=== PATIENT | male | born 1955 | race Two or more races ===

== ENCOUNTER 2018-08-05 15:50 | Emergency (ER) | payer OTHER ==
[~2018-08-05] VITALS: Ht 177.8 cm; Wt 103.4 kg
[2018-08-05] MEDS ORDERED: LISINOPRIL2.5 MG PO (16:08)
[2018-08-05] MEDS ORDERED: LEVOTHYROXINE50 MCG PO (16:08)
[2018-08-05 17:35] LABS: ALANINE AMINOTRANSFERASE 18 IU/L (0-55); ALBUMIN 3.8 g/dL (3.5-5.0); ALKALINE PHOSPHATASE 55 IU/L (40-150); ANION GAP 11.5 mmol/L (8-16); BLOOD UREA NITROGEN 13 mg/dL (7-26); BUN/CREATININE RATIO 14 (6-25); CALCIUM 8.9 mg/dL (8.4-10.2); CARBON DIOXIDE 27 mmol/L (22-29); CHLORIDE 110 mmol/L (98-107); CREATININE, SERUM 0.91 mg/dL (0.72-1.25); EST GLOMERULAR FILTRATION RATE > 60 ML/MIN (60-); GLUCOSE 103 mg/dL (74-118); POTASSIUM 4.5 mmol/L (3.5-5.1); SODIUM 144 mmol/L (136-145)
--- NOTE | 2018-08-05 19:18 | NUR ---
DR. LUGO AND ARABELLA, ENP IN TO EVAL PT IN TREATMENT ROOM.
--- NOTE | 2018-08-05 19:40 | NUR ---
MEDICATED PT ORDERED FOR HTN. PT MOVED TO ROOM 3, REPORT GIVEN TO KAYLIE HERNÁNDEZ BID CLERK NURSE.
[2018-08-05] MEDS ORDERED: NIFEDIPINE 10 MG CAP PO ONE (20:00)
--- NOTE | 2018-08-05 20:34 | Diagnostic Imaging Report ---
History:Severe eye pain Comparison studies: None Technique: Axial images were obtained from the skull base to the vertex. Coronal and sagittal images reconstructed from the axial data. Dose modulation, iterative reconstruction, and/or weight based adjustment of the mA/kV was utilized to reduce the radiation dose to as low as reasonably achievable. Intravenous contrast: None Findings: Scalp/skull: No abnormalities. Extra-axial spaces: No masses. No fluid collections. Brain sulci: Mildly prominent. Ventricles: Mild compensatory dilatation. No hydrocephalus. Parenchyma: No abnormal densities. No masses, hemorrhage, acute or chronic cortical vascular insults. Sellar/suprasellar region: No abnormalities. Craniocervical junction: Patent foramen magnum. No Chiari one malformation. Incidental findings: Atherosclerotic calcifications in the carotid siphons . Focal mucosal inflammatory changes in the floor of the right frontal sinus extend to the frontonasal recess. Additional mucosal thickening in several ethmoid air cells and the sphenoid sinuses. Impression: 1. Mild generalized volume loss. 2. Otherwise, no intracranial abnormalities. 3. Inflammatory changes in the right frontal sinus may be related to patient's symptoms. Signed by: Dr. Robles Benson M.D. on 08/05/2018 8:31 PM
[2018-08-05 21:14] VITALS: BP 152/91
== END 2018-08-05 21:24 | disposition home or self-care (01) ==
LOC: ER 15:50
DX: R51 Headache (principal); J01.00 Acute maxillary sinusitis, unspecified; J01.10 Acute frontal sinusitis, unspecified
CPT/HCPCS: 36415; 70450; 80053; 93005; 99284

== ENCOUNTER 2020-03-07 06:30 | Observation (INO) | payer BC ==
[~2020-03-07] VITALS: Ht 177.8 cm; Wt 106.6 kg
[~2020-03-07 06:30] MED LIST: LEVOTHYROXINE50 MCG PO; LISINOPRIL2.5 MG PO
[2020-03-07] MEDS ORDERED: SODIUM CHLORIDE 0.9% 1000ML 1,000 ML IV ONE (06:45)
[2020-03-07] MEDS ORDERED: ASPIRIN 81 MG CHEW TAB PO ONE (06:45)
[2020-03-07] MEDS ORDERED: ADENOSINE 6MG/2ML 2 ML ONE (06:48)
[2020-03-07] MEDS ORDERED: SODIUM CHLORIDE 0.9% 1000ML 1,000 ML ONE (06:49)
[2020-03-07] MEDS ORDERED: ADENOSINE 6 MG/2 ML VIAL IV ONE (06:51)
--- OUTSIDE RECORDS SUMMARY | 2020-03-07 07:02 | XMS REPORT | Continuity of Care Document ---
Author Author [facility] Organization [facility] Address [address] [place] [address] Phone Unavailable Care Team Providers Care Special Education Assistant Name Role Phone Patel CATALAN MD PCP Charlie LUGO Attphys Unavailable Problems This patient has no known problems. Allergies, Adverse Reactions, Alerts This patient has no known allergies or adverse reactions. Medications Ordered Medication Name Filled Medication Name Start Date Stop Da te Current Medication? Ordering Clinician Indication Dosage Frequency Signature (SIG) Comments Components Source Levothyroxine Sodium 50 Mcg Tablet Levothyroxine Sodium 50 Mcg Tablet Yes 50 Daily [facility] Lisinopril 2.5 Mg Tablet Lisinopril 2.5 Mg Tablet Yes 5 Daily [facility] Procedures Procedure Date / Time Performed Performing Clinician Sour e Computed tomography of brain without radiopaque contrast 201 01-22-17 00:00:00 VEE LUGO [facility] Encounters Start Date/Time End Date/Time Encounter Type Admission Type Attendi [facility] Care Department Encounter ID Source 2018-08-05 15:50:00 2018-08-05 21:24:00 Departed Emergency Room 1 VEE LUGO [facility] [id number] [facility] Results Test Description Test Time Test Comments Results Result Comments Source CT BRAIN WO 2018-08-05 20:28:00 [facility] [address] [place], [place] [address] Patient Name: ARLIN WYATT MR #: [id number] : 1955 Age/Sex: 63/M Req #: [id number] Adm Physician: Ordered by: VEE LUGO MD Report #: [id number] Location: ER Room/Bed: Procedure: [id number] CT/CT BRAIN WO Exam Date: Exam Time: REPORT STATUS: Signed History:Severe eye pain Comparison studies: None Technique: Axial images were obtained from the skull base to the vertex. Coronal and sagittal images reconstructed from the axial data. Dose modulation, iterative reconstruction, and/or weight based adjustment of the mA/kV was utilized to reduce the radiation dose to as low as reasonably achievable. Intravenous contrast: None Findings: Scalp/skull: No abnormalities. Extra-axial spaces: No masses. No fluid collections. Brain sulci: Mildly prominent. Ventricles: Mild compensatory dilatation. No hydrocephalus. Parenchyma: No abnormal densities. No masses, hemorr jose, acute or chronic cortical vascular insults. Sellar/suprasellar region: No abnormalities. Craniocervical junction: Patent foramen magnum. No Chiari one malformation. Incidental findings: Atherosclerotic calcifications in the carotid siphons . Focal mucosal inflammatory changes in the floor of the right frontal sinus extend to the frontonasal recess. Additional mucosal thickening in several ethmoid air cells and the sphenoid sinuses. Impression: 1. Mild generalized volume loss. 2. Otherwise, no intracranial abnormalities. 3. Inflammatory changes in the rig ht frontal sinus may be related to patient's symptoms. Signed by: Dr. Robles Benson M.D. on 08/05/2018 8:31 PM Dictated By: ROBLES BRANDT MD, MD 30 Transcribed By: LILY on 08/05/182030 COPY TO: VEE LUGO MD Sodium Level 2018-08-05 17:40:00 Test Item Sodium Level (test code = 2951-2) 144 136-145 [facility] Gubzs3868-95-63 17:40:00* Test Item Value Reference Range Interpretation Comments Potassium Level (test code = 2823-3) 4.5 3.5-5.1 [facility] Zopks9031-19-22 17:40:00* Test Item Value Reference Range Interpretation Comments Chloride Level (test code = 2075-0) 110 98-107 H [facility]entonCarbon Dioxide [id number] 17:40:00* Test Item Value Reference Range Interpretation Comments Carbon Dioxide Level (test code = 2028-9) 27 22-29 [facility]Anion [id number] 17:40:00* Test Item Value Reference Range Interpretation Comments Anion Gap (test code = 01790-9) 11.5 8-16 [facility] Urea Atsvzdys2204-24-77 17:40:00* Test Item Value Reference Range Interpretation Comments Blood Urea Nitrogen (test code = 3094-0) 13 7-26 [facility]inine2019-03-17 17:40:00* Test Item Value Reference Range Interpretation Comments Creatinine (test code = 2160-0) 0.91 0.72-1.25 [facility]UN/Creatinine Whdaq6139-07-82 17:40:00* Test Item Value Reference Range Interpretation Comments BUN/Creatinine Ratio (test code = 3097-3) 14 6- [facility] Glomerular Filtration Rate 2018-08-05 17:40:00* Test Item Value Reference Range Interpretation Comments Estimat Glomerular Filtration Rate (test code = 168297595) > 60 >60 Ranges were taken from the National Kidney Disease Education Program and the [facility] literature.Reference ranges:60 or greater: Lavdku11-75 ( for 3 consecutive months): Chronic kidney disease 15 or less: Kidney failureTexas Health DentonGlucose Olpqw8674-66-54 17:40:00* Test Item Value Reference Range Interpretation Comments Glucose Level (test code = PPX9903) 103 74-118 [facility]cium Tgmvt3996-36-06 17:40:00* Test Item Value Reference Range Interpretation Comments Calcium Level (test code = 91981-5) 8.9 8.4-10.2 [facility] Onsiwdjfd7185-33-14 17:40:00* Test Item Value Reference Range Interpretation Comments Total Bilirubin (test code = 1975-2) 0.4 0.2-1.2 [facility]enton[facility]artate Amino Transf (AST/SGOT) 2018-08-05 17:40:00* Test Item Value Reference Range Interpretation Comments Aspartate Amino Transf (AST/SGOT) (test code = Aspartate Amino Transf (AST/SGOT)) 19 5-34 [facility]anine Aminotransferase (ALT/SGPT) 2018-08-05 17:40:00* Test Item Value Reference Range Interpretation Comments Alanine Aminotransferase (ALT/SGPT) (test code = 1742-6) 18 0-55 [facility] Ejyovvy1835-24-44 17:40:00* Test Item Value Reference Range Interpretation Comments Total Protein (test code = 2885-2) 7.6 6.5-8.1 [facility]in2019-03-17 17:40:00* Test Item Value Reference Range Interpretation Comments Albumin (test code = 1751-7) 3.8 3.5-5.0 [facility]entonGlobulin2019-03-17 17:40:00* Test Item Value Reference Range Interpretation Comments Globulin (test code = 49379-2) 3.8 2.3-3.5 H [facility]entonAlbumin/Globulin Gptph9060-12-76 17:40:00 * Test Item Value Reference Range Interpretation Comments Albumin/Globulin Ratio (test code = 1759-0) 1.0 0.8-2.0 [facility]entonAlkaline Aqsobljttvu0371-20-83 17:40:00* Test Item Value Reference Range Interpretation Comments Alkaline Phosphatase (test code = 6768-6) 55 40-150 [facility]
[2020-03-07 07:04] LABS: BASOPHILS # (AUTO) 0.1 (0.0-0.1); BASOPHILS % 0.8 % (0.0-1.0); EOSINOPHILS # (AUTO) 0.6 (0.0-0.4); EOSINOPHILS % 4.5 % (0.0-6.0); HEMATOCRIT 46.4 % (38.2-49.6); HEMOGLOBIN 15.2 g/dL (14.0-18.0); MEAN CORPUSCULAR HEMOGLOBIN 30.6 pg (28-32); MEAN CORPUSCULAR HGB CONC 32.8 g/dL (31-35); MEAN CORPUSCULAR VOLUME 93.5 fL (81-99); MONOCYTES # (AUTO) 0.9 (0.2-0.8); MONOCYTES % 6.8 % (4.4-11.3); NEUTROPHILS # (AUTO) 7.6 (2.1-6.9); NEUTROPHILS % 57.4 % (38.7-80.0); PLATELET COUNT 290 x10e3/uL (140-360); RED BLOOD COUNT 4.96 x10e6/uL (4.3-5.7); RED CELL DISTRIBUTION WIDTH 12.9 % (11.7-14.4)
[2020-03-07 07:16] LABS: INR 0.93; PROTHROMBIN TIME 12.9 seconds (11.9-14.5)
[2020-03-07 07:17] LABS: PARTIAL THROMBOPLASTIN TIME 27.2 seconds (23.8-35.5)
[2020-03-07 07:22] LABS: ALANINE AMINOTRANSFERASE 21 IU/L (0-55); ALBUMIN/GLOBULIN RATIO 1.3 (0.8-2.0); ALKALINE PHOSPHATASE 46 IU/L (40-150); ANION GAP 15.3 mmol/L (8-16); BLOOD UREA NITROGEN 13 mg/dL (7-26); BUN/CREATININE RATIO 13 (6-25); CALCIUM 9.1 mg/dL (8.4-10.2); CARBON DIOXIDE 22 mmol/L (22-29); CHLORIDE 105 mmol/L (98-107); CREATINE KINASE 189 IU/L (30-200); CREATININE, SERUM 0.98 mg/dL (0.72-1.25); EST GLOMERULAR FILTRATION RATE > 60 ML/MIN (60-); GLUCOSE 132 mg/dL (74-118); POTASSIUM 4.3 mmol/L (3.5-5.1); SODIUM 138 mmol/L (136-145)
[2020-03-07] MEDS ORDERED: ONDANSETRON HCL INJ 2MG/ML 2ML 2 MG/ML VIAL IV PRN (07:45)
[2020-03-07] MEDS ORDERED: NITROGLYCERIN 0.4 MG SUBL SL PRN (07:45)
[2020-03-07] MEDS ORDERED: MORPHINE SULFATE 2 MG/ML SYR 1ML IV PRN (07:45)
[2020-03-07 07:49] LABS: FREE THYROXINE INDEX 1.9215 (1.4-3.8); THYROID STIMULATING HORMONE 7.341 uIU/mL (0.350-4.940)
--- NOTE | 2020-03-07 07:52 | Emergency Department Note ---
History of Present Illnes History of Present Illness Chief Complaint: General Medicine Complaints History of Present Illness This is a 64 year old Other male 64 Y/O MALE PT AAOX3 PRESENTS TO ED WITH SOB AND CHEST PRESSURE SINCE 0300 AM; EKG PERFORMED ON ARRIVAL, SVT NOTED, ER MD TO TRIAGE. As ECG was bring done, I had to run to 2nd floor for a Code Blue - I had nurses get pt ready on monitor with pacer pads, O2 NC, and draw up 12 mg Adenosine to give when I got back Historian: Patient Arrival Mode: Car Gym Attendant Required: No Onset (how long ago): hour(s) Location: chest Quality: heavy Radiation: Reports non-radiation Severity: moderate Onset quality: sudden Duration (how long): hour(s) Timing of current episode: constant Progression: unchanged Chronicity: new Context: Denies recent illness Relieving factors: none Exacerbating factors: none Associated symptoms: Reports chest pain, Reports shortness of breath, Reports other (palpitations) Treatments prior to arrival: none Past Medical/Family History Physician Review I have reviewed the patient's past medical and family history. Any updates have been documented here. Past Medical History Recent Fever: No Clinical Suspicion of Infectio: No New/Unexplained Change in Ment: No Past Medical History: Hypertension, Hypothyroidism, Hyperlipedemia Past Surgical History: Cholecysctectomy Social History Smoking Cessation: Current some day smoker Counseling Performed: Yes Alcohol Use: Daily Any Illegal Drug Use: No TB Exposure/Symptoms: No Physically hurt or threatened: No Family History Family history of heart diseas: No Other Any Pre-Existing Lines (PICC,: No Review of Systems Review of Systems Constitutional: Reports no symptoms EENTM: Reports no symptoms Cardiovascular: Reports as per HPI, Reports chest pain, Reports palpitations Respiratory: Reports as per HPI, Reports dyspnea, Reports dyspnea on exertion Gastrointestinal: Reports no symptoms Genitourinary: Reports no symptoms Musculoskeletal: Reports no symptoms Integumentary: Reports no symptoms Neurological: Reports no symptoms Psychological: Reports no symptoms Endocrine: Reports no symptoms Hematological/Lymphatic: Reports no symptoms Physical Exam Related Data Allergies: Coded Allergies: No Known Allergies (Verified , 06/12/07) Triage Vital Signs Vital Signs Date Time Temp Pulse Resp B/P (MAP) Pulse Ox O2 Delivery O2 Flow Rate FiO2 03/07/20 06:30 98.0 187 16 133/102 100 Room Air 03/07/20 07:12 2.0 Vital signs reviewed: Yes Physical Exam CONSTITUTIONAL Constitutional: Present well-developed, Present well-nourished HENT HENT: Present normocephalic, Present atraumatic, Present oropharynx clear/moist, Present nose normal HENT L/R: Present left ext ear normal, Present right ext ear normal EYES Eyes: Reports PERRL, Reports conjunctivae normal NECK Neck: Present ROM normal PULMONARY Pulmonary: Present effort normal, Present breath sounds normal CARDIOVASCULAR Cardiovascular: Present regular rhythm, Present heart sounds normal, Present tachycardia, Present LLE edema (1+), Present RLE edema (1+) GASTROINTESTINAL Abdominal: Present soft, Present nontender, Present bowel sounds normal GENITOURINARY Genitourinary: Present exam deferred SKIN Skin: Present warm, Present dry MUSCULOSKELETAL Musculoskeletal: Present ROM normal NEUROLOGICAL Neurological: Present alert, Present oriented x 3, Present no gross motor or sensory deficits PSYCHOLOGICAL Psychological: Present mood/affect normal, Present judgement normal Results Laboratory Result Diagram: 03/07/20 0644 Laboratory Laboratory Tests Test 03/07/20 06:44 White Blood Count 13.30 x10e3/uL (4.8-10.8) Red Blood Count 4.96 x10e6/uL (4.3-5.7) Hemoglobin 15.2 g/dL (14.0-18.0) Hematocrit 46.4 % (38.2-49.6) Mean Corpuscular Volume 93.5 fL (81-99) Mean Corpuscular Hemoglobin 30.6 pg (28-32) Mean Corpuscular Hemoglobin Concent 32.8 g/dL (31-35) Red Cell Distribution Width 12.9 % (11.7-14.4) Platelet Count 290 x10e3/uL (140-360) Neutrophils (%) (Auto) 57.4 % (38.7-80.0) Lymphocytes (%) (Auto) 30.0 % (18.0-39.1) Monocytes (%) (Auto) 6.8 % (4.4-11.3) Eosinophils (%) (Auto) 4.5 % (0.0-6.0) Basophils (%) (Auto) 0.8 % (0.0-1.0) Neutrophils # (Auto) 7.6 (2.1-6.9) Lymphocytes # (Auto) 4.0 (1.0-3.2) Monocytes # (Auto) 0.9 (0.2-0.8) Eosinophils # (Auto) 0.6 (0.0-0.4) Basophils # (Auto) 0.1 (0.0-0.1) Absolute Immature Granulocyte (auto 0.07 x10e3/uL (0-0.1) Prothrombin Time 12.9 seconds (11.9-14.5) Prothromb Time International Ratio 0.93 Activated Partial Thromboplast Time 27.2 seconds (23.8-35.5) D-Dimer Quantitative (PE/DVT) 0.26 ug/mLFEU (0.00-0.45) Sodium Level 138 mmol/L (136-145) Potassium Level 4.3 mmol/L (3.5-5.1) Chloride Level 105 mmol/L (98-107) Carbon Dioxide Level 22 mmol/L (22-29) Anion Gap 15.3 mmol/L (8-16) Blood Urea Nitrogen 13 mg/dL (7-26) Creatinine 0.98 mg/dL (0.72-1.25) Estimat Glomerular Filtration Rate > 60 ML/MIN (60-) BUN/Creatinine Ratio 13 (6-25) Glucose Level 132 mg/dL (74-118) Calcium Level 9.1 mg/dL (8.4-10.2) Magnesium Level 1.7 MG/DL (1.3-2.1) Total Bilirubin 0.2 mg/dL (0.2-1.2) Aspartate Amino Transf (AST/SGOT) 20 IU/L (5-34) Alanine Aminotransferase (ALT/SGPT) 21 IU/L (0-55) Alkaline Phosphatase 46 IU/L (40-150) Creatine Kinase 189 IU/L (30-200) Creatine Kinase MB 3.30 ng/mL (0-5.0) Troponin I 0.004 ng/mL (0-0.300) B-Type Natriuretic Peptide 55.0 pg/mL (0-100) Total Protein 7.1 g/dL (6.5-8.1) Albumin 4.0 g/dL (3.5-5.0) Globulin 3.1 g/dL (2.3-3.5) Albumin/Globulin Ratio 1.3 (0.8-2.0) Laboratory Tests Test 03/07/20 06:44 White Blood Count 13.30 x10e3/uL (4.8-10.8) Red Blood Count 4.96 x10e6/uL (4.3-5.7) Hemoglobin 15.2 g/dL (14.0-18.0) Hematocrit 46.4 % (38.2-49.6) Mean Corpuscular Volume 93.5 fL (81-99) Mean Corpuscular Hemoglobin 30.6 pg (28-32) Mean Corpuscular Hemoglobin Concent 32.8 g/dL (31-35) Red Cell Distribution Width 12.9 % (11.7-14.4) Platelet Count 290 x10e3/uL (140-360) Neutrophils (%) (Auto) 57.4 % (38.7-80.0) Lymphocytes (%) (Auto) 30.0 % (18.0-39.1) Monocytes (%) (Auto) 6.8 % (4.4-11.3) Eosinophils (%) (Auto) 4.5 % (0.0-6.0) Basophils (%) (Auto) 0.8 % (0.0-1.0) Neutrophils # (Auto) 7.6 (2.1-6.9) Lymphocytes # (Auto) 4.0 (1.0-3.2) Monocytes # (Auto) 0.9 (0.2-0.8) Eosinophils # (Auto) 0.6 (0.0-0.4) Basophils # (Auto) 0.1 (0.0-0.1) Absolute Immature Granulocyte (auto 0.07 x10e3/uL (0-0.1) Prothrombin Time 12.9 seconds (11.9-14.5) Prothromb Time International Ratio 0.93 Activated Partial Thromboplast Time 27.2 seconds (23.8-35.5) D-Dimer Quantitative (PE/DVT) 0.26 ug/mLFEU (0.00-0.45) Sodium Level 138 mmol/L (136-145) Potassium Level 4.3 mmol/L (3.5-5.1) Chloride Level 105 mmol/L (98-107) Carbon Dioxide Level 22 mmol/L (22-29) Anion Gap 15.3 mmol/L (8-16) Blood Urea Nitrogen 13 mg/dL (7-26) Creatinine 0.98 mg/dL (0.72-1.25) Estimat Glomerular Filtration Rate > 60 ML/MIN (60-) BUN/Creatinine Ratio 13 (6-25) Glucose Level 132 mg/dL (74-118) Calcium Level 9.1 mg/dL (8.4-10.2) Magnesium Level 1.7 MG/DL (1.3-2.1) Total Bilirubin 0.2 mg/dL (0.2-1.2) Aspartate Amino Transf (AST/SGOT) 20 IU/L (5-34) Alanine Aminotransferase (ALT/SGPT) 21 IU/L (0-55) Alkaline Phosphatase 46 IU/L (40-150) Creatine Kinase 189 IU/L (30-200) Creatine Kinase MB 3.30 ng/mL (0-5.0) Troponin I 0.004 ng/mL (0-0.300) B-Type Natriuretic Peptide 55.0 pg/mL (0-100) Total Protein 7.1 g/dL (6.5-8.1) Albumin 4.0 g/dL (3.5-5.0) Globulin 3.1 g/dL (2.3-3.5) Albumin/Globulin Ratio 1.3 (0.8-2.0) Laboratory Tests Test 03/07/20 06:44 White Blood Count 13.30 x10e3/uL (4.8-10.8) Red Blood Count 4.96 x10e6/uL (4.3-5.7) Hemoglobin 15.2 g/dL (14.0-18.0) Hematocrit 46.4 % (38.2-49.6) Mean Corpuscular Volume 93.5 fL (81-99) Mean Corpuscular Hemoglobin 30.6 pg (28-32) Mean Corpuscular Hemoglobin Concent 32.8 g/dL (31-35) Red Cell Distribution Width 12.9 % (11.7-14.4) Platelet Count 290 x10e3/uL (140-360) Neutrophils (%) (Auto) 57.4 % (38.7-80.0) Lymphocytes (%) (Auto) 30.0 % (18.0-39.1) Monocytes (%) (Auto) 6.8 % (4.4-11.3) Eosinophils (%) (Auto) 4.5 % (0.0-6.0) Basophils (%) (Auto) 0.8 % (0.0-1.0) Neutrophils # (Auto) 7.6 (2.1-6.9) Lymphocytes # (Auto) 4.0 (1.0-3.2) Monocytes # (Auto) 0.9 (0.2-0.8) Eosinophils # (Auto) 0.6 (0.0-0.4) Basophils # (Auto) 0.1 (0.0-0.1) Absolute Immature Granulocyte (auto 0.07 x10e3/uL (0-0.1) Prothrombin Time 12.9 seconds (11.9-14.5) Prothromb Time International Ratio 0.93 Activated Partial Thromboplast Time 27.2 seconds (23.8-35.5) Lab results reviewed: Yes Imaging Imaging results reviewed: Yes Procedures 12 Lead ECG Interpretation ECG Interpretation #1: ECG: ECG 1 Gym Attendant: Interpreted by ED physician Date: Mar 07, 2020 Time: 06:36 Rhythm: SVT Rate: tachycardia BPM: 186 QRS axis: normal ST segments normal: Yes T waves normal: Yes Clinical Impression: abnormal ECG ECG Interpretation #2: ECG: ECG 2 Gym Attendant: Interpreted by ED physician Date: Mar 07, 2020 Time: 06:51 Rhythm: sinus rhythm Rate: normal BPM: 94 QRS axis: normal ST segments normal: Yes T waves normal: Yes Clinical Impression: normal ECG Critical Care Time Total Critical Care Time (min): 30 Critical care time exclusive o: separately billable procedures Critcal care necessary due to: other (SVT 186) Critcal care time spent by me: discussion w primary provider, obtaining hx from patient/surrogate, order/perform tx or interventions, order/review laboratory studies, re-evaluation of patient condition Assessment & Plan Medical Decision Making MDM PT PRESENTS WITH CP/SOB/PALPITATIONS, TACHYCARDIC ON EXAM - ECG, CARDIACS, CBC, CHEM, D-DIMER, THYROID PANEL, BNP, CXR - PT NOTED TO BE IN SVT IN TRIAGE - WILL ATTEMPT TO CONVERT WITH ADENOSINE. R/O STEMI/NSTEMI, HYPERTHYROID, PULM EMBOLISM, CHF Reassessment Reassessment PT CONVERTED TO NSR WITH RATE OF 96 AFTER 1 DOSE OF ADENOSINE 12 MG IVP. D-DIMER NEGATIVE, LABS LOOK GOOD, ADMIT TO DR SANCHEZ OBS R/O ACS Assessment & Plan Final Impression: (1) SVT (supraventricular tachycardia) (2) Chest pain Depart Disposition: ADMITTED Last Vital Signs Date Time Temp Pulse Resp B/P (MAP) Pulse Ox O2 Delivery O2 Flow Rate FiO2 03/07/20 07:12 98.6 86 18 135/95 99 Nasal Cannula 2.0 Home Meds Reported Medications Lisinopril (LISINOPRIL) 2.5 Mg Tablet, 5 MG PO DAILY, #30 TAB 08/05/18 Levothyroxine Sodium (LEVOTHYROXINE SODIUM) 50 Mcg Tablet, 50 MCG PO DAILY, #30 TAB 08/05/18 Medications in the ED Adenosine 2 ml @ ud STK-MED ONCE .ROUTE ; Start 03/07/20 at 06:48; Stop 03/07/20 at 06:41; Status DC Aspirin 81 mg PRN ONCE PO ; Start 03/07/20 at 06:45; Stop 03/07/20 at 06:49; Status DC Sodium Chloride 1,000 ml @ ud STK-MED ONCE .ROUTE ; Start 03/07/20 at 06:49; Stop 03/07/20 at 06:42; Status DC Sodium Chloride 1,000 ml @ 0 mls/hr Q0M ONCE IV Last administered on 03/07/20at 06:50; Admin Dose 999 MLS/HR; Start 03/07/20 at 06:45; Stop 03/07/20 at 06:49; Status DC Adenosine 12 mg ONCE ONCE IV Last administered on 03/07/20at 06:51; Admin Dose 12 MG; Start 03/07/20 at 06:51; Stop 03/07/20 at 06:55; Status DC VEE LUGO MD Mar 07, 2020 07:52
--- OUTSIDE RECORDS SUMMARY | 2020-03-07 07:53 | XMS REPORT | Continuity of Care Document ---
Author Author [facility] Organization [facility] Address [address] [place] [address] Phone Unavailable Care Team Providers Care Loom Winder Tender Name Role Phone Patel CATALAN MD PCP [...] Sodium 50 Mcg Tablet Yes 50 Daily [facility] Lisinopril 2.5 Mg Tablet Lisinopril 2.5 Mg Tablet Yes 5 Daily [facility] Procedures Procedure Date / Time Performed Performing Clinician Sour e Computed tomography of brain without radiopaque contrast 201 01-22-17 00:00:00 VEE LUGO [facility] Encounters Start Date/Time End Date/Time Encounter Type Admission Type Attendi [facility] Care Department Encounter ID Source 2018-08-05 15:50:00 2018-08-05 21:24:00 Departed Emergency Room 1 VEE LUGO [facility] [id number] [facility] Results Test Description Test Time Test Comments Results Result Comments Source CT BRAIN WO 2018-08-05 20:28:00 [facility] [address] [place], [place] [address] Patient Name: ARLIN WYATT MR #: [id number] : 1955 Age/Sex: 63/M Req #: [id number] Adm Physician: Ordered by: VEE LUGO MD Report #: [id number] Location: ER Room/Bed: Procedure: [id number] CT/CT BRAIN WO Exam Date: Exam Time: [...] Level (test code = 2951-2) 144 136-145 [facility] Ktgrq5513-03-07 17:40:00* Test Item Value Reference Range Interpretation Comments Potassium Level (test code = 2823-3) 4.5 3.5-5.1 [facility] [id number] 17:40:00* Test Item Value Reference Range Interpretation Comments Chloride Level (test code = 2075-0) 110 98-107 H [facility]Car[facility] Dioxide [id number] 17:40:00* Test Item Value Reference Range Interpretation Comments Carbon Dioxide Level (test code = 2028-9) 27 22-29 [facility] [id number] 17:40:00* Test Item Value Reference Range Interpretation Comments Anion Gap (test code = 23312-0) 11.5 8-16 [facility] U[facility] Flhdpcap3310-65-96 17:40:00* Test Item Value Reference Range Interpretation Comments Blood Urea Nitrogen (test code = 3094-0) 13 7-26 [facility]2019-03-17 17:40:00* Test Item Value Reference Range Interpretation Comments Creatinine (test code = 2160-0) 0.91 0.72-1.25 [facility]Creatinine Megzy4603-55-60 17:40:00* Test Item Value Reference Range Interpretation Comments BUN/Creatinine Ratio (test code = 3097-3) 14 6- [facility] Glomerular Filtration Rate 2018-08-05 17:40:00* Test Item Value Reference Range Interpretation Comments Estimat Glomerular Filtration Rate (test code = 049946444) > 60 >60 Ranges were taken from the National Kidney Disease Education Program and the [facility] literature.Reference ranges:60 or greater: Uuezip75-59 ( for 3 consecutive months): Chronic kidney disease 15 or less: Kidney failureParkview Regional HospitalGlucose Dkvpo3403-32-99 17:40:00* Test Item Value Reference Range Interpretation Comments Glucose Level (test code = KFZ7564) 103 74-118 [facility]Cal[facility] Rpmdb1297-97-83 17:40:00* Test Item Value Reference Range Interpretation Comments Calcium Level (test code = 37652-5) 8.9 8.4-10.2 [facility]Total Butkspcjd1931-76-07 17:40:00* Test Item Value Reference Range Interpretation Comments Total Bilirubin (test code = 1975-2) 0.4 0.2-1.2 [facility] HospitalAspartate Amino Transf (AST/SGOT) 2018-08-05 17:40:00* Test Item Value Reference Range Interpretation Comments Aspartate Amino Transf (AST/SGOT) (test code = Aspartate Amino Transf (AST/SGOT)) 19 5-34 [facility] HospitalAl[facility] Aminotransferase (ALT/SGPT) 2018-08-05 17:40:00* Test Item Value Reference Range Interpretation Comments Alanine Aminotransferase (ALT/SGPT) (test code = 1742-6) 18 0-55 [facility] Aetxian7939-43-07 17:40:00* Test Item Value Reference Range Interpretation Comments Total Protein (test code = 2885-2) 7.6 6.5-8.1 [facility] HospitalAlbumin2019-03-17 17:40:00* Test Item Value Reference Range Interpretation Comments Albumin (test code = 1751-7) 3.8 3.5-5.0 [facility] HospitalGlobulin2019-03-17 17:40:00* Test Item Value Reference Range Interpretation Comments Globulin (test code = 83546-3) 3.8 2.3-3.5 H [facility] HospitalAlbumin/Globulin Thaki3947-01-89 17:40:00 * Test Item Value Reference Range Interpretation Comments Albumin/Globulin Ratio (test code = 1759-0) 1.0 0.8-2.0 [facility] HospitalAlkaline Jdnwcvufeov3792-53-66 17:40:00* Test Item Value Reference Range Interpretation Comments Alkaline Phosphatase (test code = 6768-6) 55 40-150 [facility]
[2020-03-07] MEDS: ASPIRIN 81 MG ENTERIC COATED PO SCH (08:42)
[2020-03-07] MEDS: METOPROLOL TARTRATE 25 MG TAB PO SCH ×2 (09:27→21:00)
[2020-03-07 09:33] VITALS: BP 138/98
[2020-03-07 10:00] VITALS: BP 138/98
[2020-03-07] MEDS: SODIUM CHLORIDE 0.9% 1000ML 1,000 ML IV SCH ×2 (10:08→22:00)
[2020-03-07 12:00] VITALS: BP 142/93
[2020-03-07 13:12] LABS: CREATINE KINASE MB 3.7 ng/mL (0-5.0)
--- NOTE | 2020-03-07 15:59 | Diagnostic Imaging Report ---
EXAMINATION: CHEST SINGLE (PORTABLE) INDICATION: CARDIAC WORKUP COMPARISON: None FINDINGS: TUBES and LINES: None. LUNGS: Lungs are well inflated. Central vascular congestion. Patchy left basilar opacity. No specific findings of pulmonary edema. PLEURA: Possible small left pleural effusion. No evidence of pneumothorax. HEART AND MEDIASTINUM: The cardiomediastinal silhouette is moderately enlarged. BONES AND SOFT TISSUES: No acute osseous lesion. Soft tissues are unremarkable. UPPER ABDOMEN: No free air under the diaphragm. IMPRESSION: Left basilar opacity may represent small left pleural effusion and atelectasis. Infection is possible in the appropriate clinical setting. Recommend follow-up chest radiograph to assess for resolution. Moderate enlargement of the cardiomediastinal silhouette. Signed by: Dr. Billie Loera MD on 03/07/2020 3:56 PM
[2020-03-07 16:05] VITALS: BP 131/87
[2020-03-07 18:52] LABS: CREATINE KINASE MB 3.1 ng/mL (0-5.0)
[2020-03-07 20:00] VITALS: BP 153/88
[2020-03-07] MEDS: FAMOTIDINE 20 MG/2 ML VIAL IV SCH (20:00)
--- NOTE | 2020-03-07 20:05 | NUR ---
RECEIVED PT SITTING ON THE CHAIR AOX3,DENIES PAIN .RESPIRATIONS ARE EVEN AND UNLABORED DR GLYNN HAS SEEN THE PT NS AT [address]ING ,NO ACUTE DISTRESS NOTED ,CALL LIGHT WITH IN REACH .CONTINUE TO MONITOR
[2020-03-07 23:45] VITALS: BP 153/88
[2020-03-08] VITALS: BP 162/97
[2020-03-08 01:45] LABS: CREATINE KINASE MB 2.6 ng/mL (0-5.0)
[2020-03-08 04:00] VITALS: BP 160/90
[2020-03-08] MEDS ORDERED: LEVOTHYROXINE SODIUM 50 MCG TAB PO SCH (06:00)
[2020-03-08 06:18] LABS: BASOPHILS # (AUTO) 0.1 (0.0-0.1); BASOPHILS % 0.6 % (0.0-1.0); EOSINOPHILS # (AUTO) 0.5 (0.0-0.4); EOSINOPHILS % 5.1 % (0.0-6.0); HEMATOCRIT 40.6 % (38.2-49.6); HEMOGLOBIN 13.4 g/dL (14.0-18.0); LYMPHOCYTES # (AUTO) 2.2 (1.0-3.2); LYMPHOCYTES % 25.1 % (18.0-39.1); MEAN CORPUSCULAR HEMOGLOBIN 30.7 pg (28-32); MEAN CORPUSCULAR VOLUME 93.1 fL (81-99); MONOCYTES # (AUTO) 0.6 (0.2-0.8); MONOCYTES % 7.1 % (4.4-11.3); NEUTROPHILS # (AUTO) 5.4 (2.1-6.9); NEUTROPHILS % 61.8 % (38.7-80.0); PLATELET COUNT 213 x10e3/uL (140-360); RED BLOOD COUNT 4.36 x10e6/uL (4.3-5.7)
[2020-03-08] MEDS: SODIUM CHLORIDE 0.9% 1000ML 1,000 ML IV SCH (06:30)
[2020-03-08 06:34] LABS: ALANINE AMINOTRANSFERASE 17 IU/L (0-55); ALBUMIN 3.6 g/dL (3.5-5.0); ALBUMIN/GLOBULIN RATIO 1.2 (0.8-2.0); ALKALINE PHOSPHATASE 41 IU/L (40-150); ANION GAP 11.1 mmol/L (8-16); BLOOD UREA NITROGEN 12 mg/dL (7-26); BUN/CREATININE RATIO 13 (6-25); CALCIUM 8.6 mg/dL (8.4-10.2); CARBON DIOXIDE 22 mmol/L (22-29); CHLORIDE 110 mmol/L (98-107); CHOLESTEROL 189 MD/DL (0-199); CREATININE, SERUM 0.92 mg/dL (0.72-1.25); EST GLOMERULAR FILTRATION RATE > 60 ML/MIN (60-); GLUCOSE 95 mg/dL (74-118); HDL CHOLESTEROL 47 MG/DL (40-60); LDL CHOLESTEROL 117 MG/DL (60-130); POTASSIUM 4.1 mmol/L (3.5-5.1); SODIUM 139 mmol/L (136-145); TRIGLYCERIDES 124 MG/DL (0-149)
--- NOTE | 2020-03-08 06:36 | NUR ---
PT RESTED DURING THE NIGHT ,DENIES CHEST PAIN ,CALL LIGHT WITH IN REACH ,CONTINUE TO MONITOR
--- NOTE | 2020-03-08 07:20 | NUR ---
BEDSIDE REPORT GIVEN TO THE ONCOMING NURSE
[2020-03-08 08:00] VITALS: BP 169/98
[2020-03-08 08:19] VITALS: BP 169/98
[2020-03-08] MEDS: FAMOTIDINE 20 MG/2 ML VIAL IV SCH (08:33)
[2020-03-08] MEDS: ASPIRIN 81 MG ENTERIC COATED PO SCH (08:34)
[2020-03-08] MEDS: METOPROLOL TARTRATE 25 MG TAB PO SCH (08:35)
[2020-03-08] MEDS ORDERED: LISINOPRIL 2.5 MG TAB PO SCH (09:00)
[2020-03-08] MEDS ORDERED: CIPROFLOXACIN (OPTH SOLN) 5 ML BTL OD SCH (09:00)
--- NOTE | 2020-03-08 11:57 | NUR ---
IV FLUIDS STOPPED PER PATIENT REQUEST. PATIENT REFUSED CONTINUATION OF IV FLUIDS. IV PATENT AND SALINE LOCKED.
[2020-03-08] MEDS ORDERED: HYDROCHLOROTHIA25 MG PO (13:12)
--- NOTE | 2020-03-08 14:32 | Discharge Summary ---
PRIMARY CARE PROVIDER,: Dr. Lucian Rodriguez. ADMITTING DIAGNOSES: 1. Chest pain and pressure. 2. Supraventricular tachycardia. 3. History of hypertension. 4. History of hypothyroidism. DISCHARGE DIAGNOSES: 1. Chest pain and pressure. 2. Supraventricular tachycardia. 3. History of hypertension. 4. History of hypothyroidism. BRIEF HISTORY: Mr. Carbone is a 64-year-old gentleman presenting with chest pressure and palpitations for approximately one day. The patient stated he had a similar episode a number of years ago and found due to hypothyroidism. The patient admits to a fair amount of alcohol consumption as well as energy drinks and caffeine. He presented with SVT with a heart rate of 186. HOSPITAL COURSE: The patient was given 5 mg of Adenocard IV in the ER, which converted him back to normal sinus rhythm. After conversion his EKG was completely normal. His cardiac enzymes were 0.046, 0.051, and 0.064. BNP 55.0. The patient was watched on telemetry, remained in sinus rhythm for over 24 hours. The patient was asymptomatic and had a pulse rate of 60, slightly elevated blood pressure. He was ambulating with no further tachycardia and was discharged home to resume his home medications with the addition of 12.5 mg of hydrochlorothiazide. The patient can resume regular diet and activityand follow up with his PCP within two weeks. MD ADAM Ovalle/MAGI /[id number]
== END 2020-03-08 14:47 | disposition home or self-care (01) ==
LOC: ER 06:54 → INTOOBSV 07:43 → ERHOLD 07:43 → MED/SURG 09:22
PROVIDERS: ADMIT Internal Medicine; ATTEND Internal Medicine
DX: R07.89 Other chest pain (principal); I47.1 Supraventricular tachycardia; I10 Essential (primary) hypertension; E03.9 Hypothyroidism, unspecified; F10.10 Alcohol abuse, uncomplicated; Z11.59 Encounter for screening for other viral diseases
CPT/HCPCS: 36415 ×2; 71045; 80053 ×2; 80061; 82550 ×2; 82553 ×2; 83735; 83880; 84436; 84443; 84479; 84484 ×2; 85025 ×2; 85379; 85610; 85730; 93005; 99284; G0378 ×2; J0153; J7030 ×2; U0002

== ENCOUNTER → 2020-07-18 | Outpatient (CLI) | payer BC ==
[~2020-07-18] MED LIST changes: +HYDROCHLOROTHIA25 MG PO
== END ==
LOC: RAD 07:24
PROVIDERS: ATTEND Internal Medicine
DX: Z09 Encounter for follow-up examination after completed treatment for conditions other than malignant neoplasm (principal); J18.9 Pneumonia, unspecified organism
CPT/HCPCS: 71046